=== PATIENT | male | born 1970 | race Caucasian/White ===

== ENCOUNTER → 2018-12-28 | Outpatient (CLI) | payer BC ==
[~2018-12-28] MED LIST: IOPAMIDOL 370 MG/ML 200 ML INFUS..BTL INJ ONE; SODIUM CHLORIDE 0.9% 50ML 50 ML ONE
--- NOTE | 2018-12-28 13:14 | Diagnostic Imaging Report ---
EXAM: CT Abdomen and Pelvis WITH intravenous contrast INDICATION: Abnormal weight loss COMPARISON: None. TECHNIQUE: Abdomen and pelvis were scanned utilizing a multidetector helical scanner from the lung base to the pubic symphysis after administration of IV contrast. Coronal and sagittal reformations were obtained. Routine protocol was performed. Scan was performed during portal venous phase. IV CONTRAST: 100mL of Isovue 370 ORAL CONTRAST: Water RADIATION DOSE: Total DLP: 203.1 mGy*cm Dose modulation, iterative reconstruction, and/or weight based adjustment of the mA/kV was utilized to reduce the radiation dose to as low as reasonably achievable. FINDINGS: LOWER THORAX: Normal. HEPATOBILIARY: Severe diffuse hepatic steatosis. No focal liver lesion. No biliary ductal dilation. Cholelithiasis without CT evidence of cholecystitis. SPLEEN: No splenomegaly. PANCREAS: No focal masses or ductal dilatation. ADRENALS: No adrenal nodules. KIDNEYS/URETERS: No hydronephrosis, stones, or solid mass lesions. PELVIC ORGANS/BLADDER: Coarse calcifications in the prostate. PERITONEUM / RETROPERITONEUM: No free air or fluid. LYMPH NODES: No lymphadenopathy. VESSELS: Scattered atherosclerotic calcifications of the nonaneurysmal abdominal aorta and major branches. GI TRACT: Status post partial gastrectomy and gastrojejunostomy. There is a stomach wall soft tissue mass in the prior operative bed measuring 3.3 x 3.0 cm (series 2 image 14) BONES AND SOFT TISSUES: No acute osseous injury. No suspicious lytic or blastic lesions. IMPRESSION: Status post partial gastrectomy and gastrojejunostomy. Apparent 3.3 x 3.0 cm stomach wall soft tissue mass in the prior operative bed. Endoscopy is recommended for further evaluation. Severe hepatic steatosis. Signed by: Roshni Velez MD on 12/28/2018 1:10 PM
== END ==
LOC: CT 11:32
PROVIDERS: ATTEND Internal Medicine Medical Oncology
DX: R10.9 Unspecified abdominal pain (principal); R63.4 Abnormal weight loss
CPT/HCPCS: 74177; Q9967